=== PATIENT | female | born 1975 | race Caucasian/White ===

== ENCOUNTER 2021-05-20 23:14 | Emergency (ER) | payer MEDICAID ==
[~2021-05-20] VITALS: Ht 162.6 cm; Wt 111.0 kg
[2021-05-20 23:18] VITALS: BP 127/79
--- NOTE | 2021-05-21 01:44 | NUR ---
BEDSIDE REPORT GIVEN TO BEV MIRANDA
--- NOTE | 2021-05-21 01:47 | NUR ---
PT PRESENTS TO THE ER FOR SCIATIC PAIN, PT HAS BEEN EXPERIENCING THIS PAIN SINCE THE
[2021-05-21] MEDS ORDERED: METHOCARBAMOL 750 MG TABLET ONE (01:52)
[2021-05-21] MEDS ORDERED: KETOROLAC 60 MG/2 ML ONE (01:52)
[2021-05-21] MEDS ORDERED: METHOCARBAMOL 750 MG TABLET PO ONE (02:00)
[2021-05-21] MEDS ORDERED: KETOROLAC 60 MG/2 ML IM ONE (02:00)
--- NOTE | 2021-05-21 03:06 | NUR ---
PT NO LONGER EXPERIENCING EXCRUTIATING BACK PAIN, PT ABLE TO AMBULATE WITHOUT A LOT OF PAIN, PT STATED SHE FEELS GOOD ENOUGH TO GO HOME AND WILL ACTUALLY BE ABLE TO GET SOME REST
== END 2021-05-21 03:14 | disposition home or self-care (01) ==
LOC: ED 23:59
DX: M54.41 Lumbago with sciatica, right side (principal); L72.3 Sebaceous cyst
CPT/HCPCS: 96372; 99283; J1885; J7512